=== PATIENT | male | born 1965 | race Two or more races ===

== ENCOUNTER 2016-08-02 13:45 | Emergency (ER) | payer MEDICARE, MEDICAID ==
[~2016-08-02] VITALS: Ht 172.7 cm; Wt 63.5 kg
[~2016-08-02 13:45] MED LIST: ANTIVERT25 MG ORAL; CYMBALTA30 MG ORAL; DILANTIN100 MG ORAL; DSS250 MG ORAL; EFFEXOR XR150 MG ORAL; GABAPENTIN800 MG ORAL; MS CONTIN100 MG ORAL; NEXIUM2.5 MG ORAL; NEXIUM40 MG ORAL; NORCO 5-325 TA1 EACH ORAL; PAMELOR10 MG ORAL; PHENYTOIN SODI100 MG ORAL; RANITIDINE HCL150 MG ORAL; SINGULAIR10 MG ORAL; VENLAFAXINE HCL25 MG ORAL; VICODIN ES 7.51 EAC1 ORAL; ZOFRAN ODT4 MG ORAL
[2016-08-02 14:05] VITALS: BP 132/83
[2016-08-02] MEDS: traMADol 50mg tab ORAL ONE ×2 (14:27→14:29)
--- NOTE | 2016-08-02 14:37 | Emergency Room Report ---
History of Present Illness General Chief Complaint: Upper Extremity Injury Present Illness HPI The patient is a 51-year-old male presenting with right elbow pain which began last night. The patient states that he fell on the bed onto the elbow. Pain is described as a 10 out of 10 dull ache it does not radiate. Pain worse with touch and movement. The patient denies prior injury to this area. Patient denies numbness or tingling. Pt denies any other symptoms including N, V,F, chills, rash Allergies: Coded Allergies: IBUPROFEN (Verified Allergy, Unknown, 09/20/10) Patient History Past Medical History: see triage record Pertinent Family History: none Reviewed Nursing Documentation: PMH: Agreed, PSxH: Agreed Nursing Documentation-PMH Past Medical History: No Stated History Hx Cardiac Problems: No Hx Hypertension: No Hx Pacemaker: No Hx Asthma: No Hx Diabetes: No Hx Cancer: No Hx Gastrointestinal Problems: Yes - Pancreatitis Hx Neurological Problems: Yes - SEIZURES- LAST EPISODE WAS ON 12/2013 Hx Seizures: Yes Review of Systems All Other Systems: negative except mentioned in HPI Physical Exam Vital Signs Date Time Temp Pulse Resp B/P Pulse Ox O2 Delivery O2 Flow Rate FiO2 08/02/16 14:05 98.6 102 20 132/83 97 Room Air Sp02 EP Interpretation: reviewed, normal General Appearance: no apparent distress, alert, GCS 15, non-toxic Head: normocephalic, atraumatic Eyes: bilateral eye PERRL, bilateral eye normal inspection ENT: hearing grossly normal, normal pharynx, no angioedema, normal voice Neck: full range of motion, supple/symm/no masses Musculoskeletal: normal inspection, normal range of motion, tender - TTP over R radial head Neurologic: alert, oriented x3, responsive, motor strength/tone normal, sensory intact, normal gait, speech normal Psychiatric: memory normal, no suicidal/homicidal ideation, anxious Skin: normal color, no rash, warm/dry, well hydrated Lymphatic: no adenopathy Procedures Splinting Splinting #1: Consent: Verbal Location: R elbow Pre-Made Type: INES wrap Pre-Proc Neuro Vasc Exam: normal Post-Proc Neuro Vasc Exam: normal Patient Tolerated: Well Complications: None Splinting #2: Consent: Verbal Location: R arm sling Pre-Made Type: sling Pre-Proc Neuro Vasc Exam: normal Post-Proc Neuro Vasc Exam: normal Patient Tolerated: Well Complications: None Medical Decision Making PA Attestation Dr. Obregon is my supervising physician. Patient management was discussed with my supervising physician Diagnostic Impression: Primary Impression: Elbow contusion ER Course The patient is a 51-year-old male presenting with right elbow pain which began last night. Ddx considered include but not limited to sprain/strain, fracture, contusion, narcotic dependence PE: vitals WNL. Pt appears anxious. R elbow: No edema. No ecchymosis. Full AROM. SILT. No TTP over olecranon. + TTP over radial head only. The patient was offered tramadol for pain and refused and states he wants " at least some Dilaudid". Patient initially declines x-rays and continues to ask for narcotics. CURES was checked and the patient was recently placed on Suboxone. Xray of elbow unremarkable. INES wrap placed over elbow and arm placed in sling. I advised patient that he needs to followup with pain management. The patient is given a prescription for Tylenol and will be discharged home. ER precautions are given Other X-Ray Diagnostic Results Other X-Ray Diagnostic Results : X-Ray Ordered: R elbow Date: Aug 02, 2016 EP Interpretation: Yes Findings: no fractures, no dislocation, no soft tissue swelling Number of Views: 3 PA Scribe Text I am acting as scribe for my supervising physician. My supervising physician's interpretation of the R elbow xrays are there are no fractures, dislocations or soft tissue swelling. Last Vital Signs Date Time Temp Pulse Resp B/P Pulse Ox O2 Delivery O2 Flow Rate FiO2 08/02/16 14:05 98.6 102 20 132/83 97 Room Air Status: improved Disposition: HOME, SELF-CARE Condition: Improved Scripts Acetaminophen* (TYLENOL EXTRA STRENGTH*) 500 Mg Tablet 500 MG ORAL Q8H Y for Prn Headache/Temp > 101, #30 TAB 0 Refills Prov: JO ESTRELLA 08/02/16 Referrals: NOT CHOSEN [facility]/,REFERRING (PCP) JO ESTRELLA Aug 02, 2016 14:37
--- NOTE | 2016-08-02 15:03 | Diagnostic Imaging Report ---
Indication: Pain Findings: 3 views of the right elbow were obtained. No acute fractures, malalignment, erosions or periostitis are identified. Bone mineralization is within normal limits. Soft tissues are unremarkable. Impression: Negative examination of the elbow.
[2016-08-02 15:04] VITALS: BP 128/72
[2016-08-02] MEDS ORDERED: TYLENOL EXTRA500 MG ORAL (15:07)
== END 2016-08-02 15:09 | disposition home or self-care (01) ==
LOC: EMR 14:30
DX: S50.01XA Contusion of right elbow, initial encounter (principal); W06.XXXA Fall from bed, initial encounter; Y92.9 Unspecified place or not applicable; Z88.6 Allergy status to analgesic agent
CPT/HCPCS: 29260; 99283

== ENCOUNTER 2016-08-20 23:51 | Emergency (ER) | payer MEDICARE, MEDICAID ==
[~2016-08-20] VITALS: Ht 172.7 cm; Wt 73.5 kg
[~2016-08-20 23:51] MED LIST changes: +TYLENOL EXTRA500 MG ORAL
[2016-08-21] MEDS ORDERED: GABAPENTIN100 MG ORAL (00:27)
[2016-08-21 00:30] VITALS: BP 130/73
--- NOTE | 2016-08-21 01:23 | Emergency Room Report ---
History of Present Illness General Chief Complaint: Head Injury Source: Patient Present Illness [facility] This is a 31-year-old male presents with chief complaint of head injury. He said that about 24 hours ago he was picking up medicine for his mother. He said that there were boxes in the parking lot and he ducked underneath it. He stood up and hit his head on the boxes. He said he fell to the ground. He went home and slept until 4 PM. He is here now because of headache. No other injury. He drove here without a problem. Denies any other complaint. Allergies: Coded Allergies: IBUPROFEN (Verified Allergy, Unknown, 09/20/10) Patient History Past Medical History: see triage record, old chart reviewed Past Surgical History: other Pertinent Family History: none Social History: Denies: smoking Immunizations: other Reviewed Nursing Documentation: PMH: Agreed, PSxH: Agreed Nursing Documentation-PMH Hx Cardiac Problems: No Hx Hypertension: No Hx Pacemaker: No Hx Asthma: No Hx Diabetes: No Hx Cancer: No Hx Gastrointestinal Problems: Yes - Pancreatitis Hx Neurological Problems: Yes - SEIZURES- LAST EPISODE WAS ON 12/2013 Hx Seizures: Yes Review of Systems Eye: Denies: blurred vision, eye pain ENT: Denies: ear pain, nose congestion, throat swelling Respiratory: Denies: cough, shortness of breath Cardiovascular: Denies: chest pain, palpitations Gastrointestinal: Denies: abdominal pain, diarrhea, nausea, vomiting Musculoskeletal: Denies: back pain, joint pain Skin: Denies: rash Neurological: Denies: headache, numbness Endocrine: Denies: increased thirst, increased urine Hematologic/Lymphatic: Denies: easy bruising All Other Systems: negative except mentioned in HPI Physical Exam Vital Signs Date Time Temp Pulse Resp B/P Pulse Ox O2 Delivery O2 Flow Rate FiO2 08/21/16 00:22 89 18 130/73 96 vitals normal. Sp02 EP Interpretation: reviewed, normal General Appearance: well appearing, no apparent distress, alert Head: normocephalic, other - abrasion to frontal scalp Eyes: bilateral eye EOMI, bilateral eye PERRL ENT: hearing grossly normal, normal pharynx Neck: full range of motion, supple, no meningismus Respiratory: chest non-tender, lungs clear, normal breath sounds Cardiovascular #1: regular rate, rhythm, no murmur Gastrointestinal: normal bowel sounds, non tender, no mass, no organomegaly, no bruit, non-distended Musculoskeletal: back normal, gait/station normal, normal range of motion Neurologic: alert, oriented x3 Psychiatric: mood/affect normal Skin: warm/dry Medical Decision Making Diagnostic Impression: Primary Impression: Acute head injury Qualified Codes: S09.90XA - Unspecified injury of head, initial encounter Additional Impression: History of cocaine abuse ER Course Is presents with head injury. No evidence of intracranial bleed or fracture. He does have a history of opioid dependence and cocaine abuse in the past. I suspect that he may have drugs involved causing his injury. CT/MRI/US Diagnostic Results CT/MRI/US Diagnostic Results : Imaging Test Ordered: ct head Impression neg per radiologist Last Vital Signs Date Time Temp Pulse Resp B/P Pulse Ox O2 Delivery O2 Flow Rate FiO2 08/21/16 00:22 89 18 130/73 96 Status: improved Disposition: HOME, SELF-CARE Condition: Stable Referrals: NOT CHOSEN IPA/,REFERRING (PCP) Patient Instructions: HEAD INJURY, No Wake-Up (Adult) Additional Instructions: Follow up with your doctor in 7 days. Stop using cocaine. Return if worse. BEATRIS MONTILLA M.D. Aug 21, 2016 01:23
[2016-08-21 01:30] VITALS: BP 130/73
--- NOTE | 2016-08-21 10:17 | Diagnostic Imaging Report ---
Indication: TRAUMA Technique: Continuous helical CT scanning of the head was performed without intravenous contrast material. Axial and coronal 5 mm sections were generated. Radiation dose was minimized using automated exposure control Dose: Total Dose Length Product - DLP [address] Dose Index - CTDIvol(s) 70.38 mGy. Comparison: 03/20/2011 Findings: The ventricular system is normal in size and configuration. There is no shift of midline structures. No abnormal extra-axial fluid collections are noted. There is no evidence of intracerebral bleeding. No other abnormal high or low density areas are noted within the brain. Intact calvarium. Visualized orbits and sinuses are unremarkable. No significant interim change Impression: Normal CT scan of the head without contrast material. This agrees with the preliminary interpretation provided overnight by [facility]. The CT scanner at [facility] is accredited by the [employer] and the scans are performed using protocols designed to limit radiation exposure to as low as reasonably achievable to attain images of sufficient resolution adequate for diagnostic evaluation.
== END 2016-08-21 01:30 | disposition home or self-care (01) ==
LOC: EMR 08-21 01:04
DX: S09.90XA Unspecified injury of head, initial encounter (principal); F14.10 Cocaine abuse, uncomplicated; Z88.6 Allergy status to analgesic agent; W22.09XA Striking against other stationary object, initial encounter; Y92.9 Unspecified place or not applicable; Y99.8 Other external cause status
CPT/HCPCS: 70450; 99284

== ENCOUNTER 2017-04-15 02:44 | Emergency (ER) | payer MEDICARE, MEDICAID ==
[~2017-04-15] VITALS: Ht 172.7 cm; Wt 70.3 kg
[~2017-04-15 02:44] MED LIST changes: +GABAPENTIN100 MG ORAL
[2017-04-15] MEDS ORDERED: Morphine Sulfate 4mg/ml Inj IVP ONE (03:15)
[2017-04-15 03:28] VITALS: BP 110/73
[2017-04-15 03:28] LABS: MEAN CORPUSCULAR HEMOGLOBIN 32.7 PG (27.0-31.0); MEAN CORPUSCULAR HGB CONC 33.7 G/DL (32.0-36.0); MEAN CORPUSCULAR VOLUME 97 FL (80-99); MEAN PLATELET VOLUME 6.2 FL (6.5-10.1); PLATELET COUNT 301 K/UL (150-450); RED BLOOD COUNT 4.58 M/UL (4.70-6.10); RED CELL DISTRIBUTION WIDTH 10.9 % (11.6-14.8); WHITE BLOOD COUNT 7.3 K/UL (4.8-10.8)
[2017-04-15 03:59] LABS: ANION GAP 9 mmol/L (5-15); CALCIUM 9.1 MG/DL (8.5-10.1); CARBON DIOXIDE 28 MMOL/L (21-32); CHLORIDE 100 MMOL/L (98-107); CREATININE 1.1 MG/DL (0.55-1.30); GLOMERULAR FILTRATION RATE > 60 mL/min (>60); POTASSIUM 4.2 MMOL/L (3.5-5.1); SODIUM 137 MMOL/L (136-145)
[2017-04-15 04:04] LABS: ALANINE AMINOTRANSFERASE 64 U/L (12-78); ALBUMIN/GLOBULIN RATIO 0.9 (1.0-2.7); ASPARTATE AMINO TRANSFERASE 65 U/L (15-37); LIPASE 219 U/L (73-393); TOTAL PROTEIN 8.7 G/DL (6.4-8.2)
[2017-04-15] MEDS ORDERED: ZOFRAN ODT4 MG ORAL (04:19)
[2017-04-15] MEDS ORDERED: RANITIDINE HCL150 MG ORAL (04:19)
[2017-04-15 04:32] VITALS: BP 103/81
[2017-04-15 04:33] VITALS: BP 110/73
--- NOTE | 2017-04-15 05:00 | Emergency Room Report ---
History of Present Illness General Chief Complaint: Abdominal Pain Source: Patient Present Illness HPI 52-year-old male presents ED complaining of abdominal pain and vomiting. States symptoms started last week but has not resolved. Patient has history of pancreatitis. Discussed pain is epigastric, 10 out of 10, sharp, nonradiating. Multiple episodes of vomiting. States he vomited blood last week there's been no blood since. Denies chest pain or shortness of breath. Denies fevers or chills. No other aggravating relieving factors. Denies any other associated symptoms Allergies: Coded Allergies: IBUPROFEN (Verified Allergy, Unknown, 09/20/10) Patient History Past Medical History: seizures, other - pancreatitis Immunizations: UTD Reviewed Nursing Documentation: PMH: Agreed, PSxH: Agreed Nursing Documentation-PMH Hx Cardiac Problems: No Hx Hypertension: No Hx Pacemaker: No Hx Asthma: No Hx Diabetes: No Hx Cancer: No Hx Gastrointestinal Problems: Yes - Pancreatitis Hx Neurological Problems: Yes - SEIZURES- LAST EPISODE WAS ON 12/2013 Hx Seizures: Yes Review of Systems All Other Systems: negative except mentioned in HPI Physical Exam Vital Signs Date Time Temp Pulse Resp B/P (MAP) Pulse Ox O2 Delivery O2 Flow Rate FiO2 04/15/17 02:48 97.9 85 18 110/71 98 Room Air Sp02 EP Interpretation: reviewed, normal General Appearance: alert, GCS 15, non-toxic, mild distress Head: normocephalic, atraumatic Eyes: bilateral eye normal inspection, bilateral eye PERRL ENT: hearing grossly normal, normal pharynx, no angioedema, normal voice Neck: full range of motion, supple/symm/no masses Respiratory: chest non-tender, lungs clear, normal breath sounds, speaking full sentences Cardiovascular #1: regular rate, rhythm, no edema Cardiovascular #2: 2+ carotid (R), 2+ carotid (L), 2+ radial (R), 2+ radial (L) , 2+ dorsalis pedis (R), 2+ dorsalis pedis (L) Gastrointestinal: normal bowel sounds, soft, non-distended, no guarding, no rebound, tenderness - epigastric Rectal: deferred Genitourinary: normal inspection, no CVA tenderness Musculoskeletal: back normal, gait/station normal, normal range of motion, non- tender Neurologic: alert, oriented x3, responsive, motor strength/tone normal, sensory intact, speech normal Psychiatric: judgement/insight normal, memory normal, mood/affect normal, no suicidal/homicidal ideation Reflexes: 3+ bicep (R), 3+ bicep (L), 3+ tricep (R), 3+ tricep (L), 3+ knee (R) , 3+ knee (L) Skin: normal color, no rash, warm/dry, well hydrated Lymphatic: no adenopathy Medical Decision Making Diagnostic Impression: Primary Impression: Gastritis Qualified Codes: K29.00 - Acute gastritis without bleeding Additional Impression: Opioid dependence Qualified Codes: F11.29 - Opioid dependence with unspecified opioid-induced disorder ER Course Hospital Course 52-year-old M presents to ED with epigastric pain with N/V. differential diagnosis: gastritis, SBO, cholecystits Clinical course Patient placed on stretcher. 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 After initial history and physical I ordered labs, IV fluids, Zofran and Zantac and pain meds Labs - no leukocytosis, no electrolyte abnormalities, LFTs normal Upon reassessment, patient states pain has improved. findings consistent with gastritis I reviewed EMR; patient has been here multiple times for similar presentation. There has been previous history of drug abuse. I reviewed CURES and patient receives extensive monthly narcotic prescriptions I feel this is a highly complex case requiring extensive working including EKG/ Rhythm strip, Xray/CT/US, Blood/urine lab work, repeat exams while in ED, and administration of strong opiates/narcotics for pain control, admission to hospital or close patient follow up. Diagnosis - gastritis, opioid dependence Stable and discharged to home with prescriptions for Zantac, zofran. Followup with PMD. Return to ED if symptoms recur or worsen Labs Test 04/15/17 03:20 White Blood Count 7.3 K/UL (4.8-10.8) Red Blood Count 4.58 M/UL (4.70-6.10) Hemoglobin 15.0 G/DL (14.2-18.0) Hematocrit 44.5 % (42.0-52.0) Mean Corpuscular Volume 97 FL (80-99) Mean Corpuscular Hemoglobin 32.7 PG (27.0-31.0) Mean Corpuscular Hemoglobin Concent 33.7 G/DL (32.0-36.0) Red Cell Distribution Width 10.9 % (11.6-14.8) Platelet Count 301 K/UL (150-450) Mean Platelet Volume 6.2 FL (6.5-10.1) Neutrophils (%) (Auto) % (45.0-75.0) Lymphocytes (%) (Auto) % (20.0-45.0) Monocytes (%) (Auto) % (1.0-10.0) Eosinophils (%) (Auto) % (0.0-3.0) Basophils (%) (Auto) % (0.0-2.0) Sodium Level 137 MMOL/L (136-145) Potassium Level 4.2 MMOL/L (3.5-5.1) Chloride Level 100 MMOL/L (98-107) Carbon Dioxide Level 28 MMOL/L (21-32) Anion Gap 9 mmol/L (5-15) Blood Urea Nitrogen 17 mg/dL (7-18) Creatinine 1.1 MG/DL (0.55-1.30) Estimat Glomerular Filtration Rate > 60 mL/min (>60) Glucose Level 98 MG/DL (74-106) Calcium Level 9.1 MG/DL (8.5-10.1) Total Bilirubin 0.5 MG/DL (0.2-1.0) Aspartate Amino Transf (AST/SGOT) 65 U/L (15-37) Alanine Aminotransferase (ALT/SGPT) 64 U/L (12-78) Alkaline Phosphatase 91 U/L (46-116) Total Protein 8.7 G/DL (6.4-8.2) Albumin 4.0 G/DL (3.4-5.0) Globulin 4.7 g/dL Albumin/Globulin Ratio 0.9 (1.0-2.7) Lipase 219 U/L (73-393) Last Vital Signs Date Time Temp Pulse Resp B/P (MAP) Pulse Ox O2 Delivery O2 Flow Rate FiO2 04/15/17 04:39 97.8 04/15/17 04:33 70 18 110/73 98 Room Air Status: improved Disposition: HOME, SELF-CARE Condition: Stable Scripts Ondansetron Odt* (ZOFRAN ODT*) 4 Mg Tab.rapdis 4 MG ORAL Q6H Y for Nausea & Vomiting, #30 TAB 0 Refills Prov: DANYA WILKS M.D. 04/15/17 Ranitidine Hcl* (ZANTAC*) 150 Mg Tablet 150 MG ORAL TWICE A DAY, #30 TAB Prov: DANYA WILKS M.D. 04/15/17 Referrals: JOHNNA AVILA (PCP) Patient Instructions: Gastritis, Adult DANYA WILKS M.D. Apr 15, 2017 05:00
== END 2017-04-15 04:33 | disposition home or self-care (01) ==
LOC: EMR 03:04
DX: K29.00 Acute gastritis without bleeding (principal); F11.29 Opioid dependence with unspecified opioid-induced disorder; Z88.6 Allergy status to analgesic agent
CPT/HCPCS: 36415; 80053; 83690; 85025; 96361; 96374; 96375; 99284; J2270; J2405; S0028

== ENCOUNTER 2017-05-30 22:03 | Emergency (ER) | payer MEDICARE, MEDICAID ==
[~2017-05-30] VITALS: Ht 172.7 cm; Wt 70.8 kg
--- NOTE | 2017-05-30 22:44 | Emergency Room Report ---
History of Present Illness General Chief Complaint: Upper Extremity Injury Source: Patient Present Illness HPI 52-year-old male, no significant past medical history, presenting with right hand pain. Patient states that he was moving heavy household items with a shopping cart, a heavy household items box fell onto his hand. Now complaining of right hand pain. No other complaints Allergies: Coded Allergies: IBUPROFEN (Verified Allergy, Unknown, 05/30/17) Patient History Past Medical History: see triage record Past Surgical History: none Pertinent Family History: none Reviewed Nursing Documentation: PMH: Agreed, PSxH: Agreed Nursing Documentation-PMH Hx Cardiac Problems: No Hx Hypertension: No Hx Pacemaker: No Hx Asthma: No Hx Diabetes: No Hx Cancer: No Hx Gastrointestinal Problems: Yes - Pancreatitis Hx Neurological Problems: Yes - SEIZURES- LAST EPISODE WAS ON 12/2013 Hx Seizures: Yes Review of Systems All Other Systems: negative except mentioned in HPI Physical Exam Vital Signs Date Time Temp Pulse Resp B/P (MAP) Pulse Ox O2 Delivery O2 Flow Rate FiO2 05/30/17 22:15 98.2 84 16 104/74 98 Room Air Sp02 EP Interpretation: reviewed, normal General Appearance: normal inspection, well appearing, no apparent distress, alert, GCS 15, non-toxic Head: normocephalic, atraumatic Eyes: bilateral eye normal inspection, bilateral eye PERRL, bilateral eye EOMI ENT: normal ENT inspection, normal pharynx, normal voice, moist mucus membranes Neck: normal inspection, full range of motion, supple Respiratory: normal inspection, lungs clear, normal breath sounds, no respiratory distress, no retraction, no wheezing, speaking full sentences, chest symmetrical Cardiovascular #1: normal inspection, regular rate, rhythm, no edema, normal capillary refill Cardiovascular #2: 2+ radial (R), 2+ radial (L) Gastrointestinal: normal inspection, non tender, soft, non-distended, no guarding Genitourinary: no CVA tenderness Musculoskeletal: other - R hand with edema/erythema dorsum 4th/5th metacarpal region, has full range of motion however w/ pain. no gross bony deformities. Neurologic: normal inspection, alert, oriented x3, responsive, motor strength/ tone normal, sensory intact, normal gait, speech normal Psychiatric: normal inspection, judgement/insight normal, memory normal Skin: normal inspection, normal color, no rash, warm/dry, well hydrated, normal turgor Medical Decision Making Diagnostic Impression: Primary Impression: Contusion of hand, right ER Course 52-year-old male with right hand pain DDX: Contusion vs. fracture Plan: Pain control with Tylenol XR ER course: Patient reports improvement of pain XR reveals soft tissue swelling without fracture Vadim wrap applied Disposition: Patient is to be discharged home Patient educated to rest, ice, and elevate extremity and to avoid vigorous activity. Strict precautions discussed with patient on when to return to the emergency room including increased redness or swelling joints, increased pain/swelling of extremity, fever or chills, which could indicate severe illness. Patient is to follow up with their primary care doctor within 5 days. Patient also instructed to follow up with an orthopedic doctor if continuing to have mild/moderate pain as he may need further outpatient imaging. Patient agrees with plan. Please note that this Emergency Department Report was dictated using [employer] or probation officer technology software, occasionally this can lead to erroneous entry secondary to interpretation by the dictation equipment. Xray ordered: Right hand 3 view Indication: Pain EP Interpretation: Yes Interpretation: No dislocation, no soft tissue swelling, no fractures Impression: No acute disease Electronically signed by Juan Ly MD Xray: Right wrist Complete Indication: Pain EP Interpretation: Yes Interpretation: No dislocation, no soft tissue swelling, no fractures Impression: No acute disease Electronically signed by Juan Ly MD Last Vital Signs Date Time Temp Pulse Resp B/P (MAP) Pulse Ox O2 Delivery O2 Flow Rate FiO2 05/30/17 22:15 98.2 84 16 104/74 98 Room Air Disposition: HOME, SELF-CARE Condition: Improved Patient Instructions: CONTUSION, Upper Extremity Juan Ly M.D. May 30, 2017 22:44
[2017-05-30] MEDS ORDERED: Acetaminophen 500mg (ES) tab ORAL ONE (22:45)
[2017-05-30 23:10] VITALS: BP 104/74
[2017-05-30 23:13] VITALS: BP 104/74
--- NOTE | 2017-05-31 11:16 | Diagnostic Imaging Report ---
Indication: pain Findings: 3 views of the right hand were obtained. Normal bony mineralization and alignment are demonstrated. No acute fractures, erosions, or periosteal reaction are seen. Soft tissues are unremarkable. Impression: No acute findings.
--- NOTE | 2017-05-31 11:16 | Diagnostic Imaging Report ---
Indication: Pain Findings: 3 views of the right wrist were obtained. No acute fractures, malalignment, erosions or periostitis are identified. Soft tissues are unremarkable. Impression: No acute findings.
== END 2017-05-30 23:13 | disposition home or self-care (01) ==
LOC: EMR 22:45
DX: S60.221A Contusion of right hand, initial encounter (principal); X50.0XXA Overexertion from strenuous movement or load, initial encounter; Y92.89 Other specified places as the place of occurrence of the external cause
CPT/HCPCS: 99284

== ENCOUNTER 2017-12-20 00:16 | Emergency (ER) | payer MEDICARE, MEDICAID ==
[~2017-12-20] VITALS: Ht 172.7 cm; Wt 72.6 kg
[2017-12-20] MEDS ORDERED: Promethazine 50mg/ml Inj IM ONE (00:30)
--- NOTE | 2017-12-20 00:41 | Emergency Room Report ---
History of Present Illness General Chief Complaint: Headache Source: Patient Present Illness HPI Is a 52-year-old male with history opioid dependence. He is on Suboxone. Also has history of headache. He presents with left-sided headache for the last 2 days. He said [id number] Tylenol not helping. Usually goes to the hospital get pain medication. Denies any fever chills. Gradual onset. Similar to previous headache. No nausea no vomiting. No fever or chills. Pain is 7 out of 10. Nothing made it better. Nothing made it worse. Allergies: Coded Allergies: IBUPROFEN (Verified Allergy, Unknown, 05/30/17) Patient History Past Medical History: see triage record, old chart reviewed Past Surgical History: other Pertinent Family History: none Social History: Reports: smoking Immunizations: other Reviewed Nursing Documentation: PMH: Agreed; PSxH: Agreed Nursing Documentation-PMH Hx Cardiac Problems: No - MIGRAINE Hx Hypertension: No Hx Pacemaker: No Hx Asthma: No Hx Diabetes: No Hx Cancer: No Hx Gastrointestinal Problems: Yes - Pancreatitis Hx Neurological Problems: Yes - SEIZURES- LAST EPISODE WAS ON 12/2013 Hx Seizures: Yes Review of Systems Eye: Denies: eye pain, blurred vision ENT: Denies: ear pain, nose congestion, throat swelling Respiratory: Denies: cough, shortness of breath Cardiovascular: Denies: chest pain, palpitations Gastrointestinal: Denies: abdominal pain, diarrhea, nausea, vomiting Musculoskeletal: Denies: back pain, joint pain Skin: Denies: rash Neurological: Reports: headache; Denies: numbness Endocrine: Denies: increased thirst, increased urine Hematologic/Lymphatic: Denies: easy bruising All Other Systems: negative except mentioned in HPI Physical Exam Vital Signs Date Time Temp Pulse Resp B/P (MAP) Pulse Ox O2 Delivery O2 Flow Rate FiO2 12/20/17 00:19 97.7 80 16 121/84 99 97.7 vitals normal Sp02 EP Interpretation: reviewed, normal General Appearance: well appearing, no apparent distress, alert Head: normocephalic, atraumatic Eyes: bilateral eye PERRL, bilateral eye EOMI ENT: hearing grossly normal, normal pharynx Neck: full range of motion, supple, no meningismus Respiratory: chest non-tender, lungs clear, normal breath sounds Cardiovascular #1: regular rate, rhythm, no murmur Gastrointestinal: normal bowel sounds, non tender, no mass, no organomegaly, no bruit, non-distended Musculoskeletal: back normal, gait/station normal, normal range of motion Psychiatric: mood/affect normal Skin: warm/dry Medical Decision Making Diagnostic Impression: Primary Impression: Headache Qualified Codes: R51 - Headache Additional Impressions: Opioid dependence Qualified Codes: F11.20 - Opioid dependence, uncomplicated Cocaine abuse ER Course Patient presents with chief complaint of headache. No evidence of any meningitis, sepsis, bleed or TIA or CVA. No evidence of neoplastic process. He 's been here numerous times for different pain complaint. He has a history of cocaine abuse. He felt to mention that he was on Suboxone until I brought it up. Because of his history of cocaine abuse and currently on Suboxone, I am uncomfortable prescribing any narcotics. Patient keep asking for pain medication. Ice and a drug screen because he had a history of cocaine abuse. Initially he denied it but then admit that he was using cocaine. After getting Phenergan he was mad that he was not getting narcotics so we got up and left. Patient left without his paperwork. Last Vital Signs Date Time Temp Pulse Resp B/P (MAP) Pulse Ox O2 Delivery O2 Flow Rate FiO2 12/20/17 00:19 97.7 80 16 121/84 99 97.7 Status: unchanged Disposition: HOME, SELF-CARE BEATRIS MONTILLA M.D. Dec 20, 2017 00:41
[2017-12-20 00:59] VITALS: BP 121/84
== END 2017-12-20 01:00 | disposition home or self-care (01) ==
LOC: EMR 00:30
DX: G43.909 Migraine, unspecified, not intractable, without status migrainosus (principal); F11.20 Opioid dependence, uncomplicated; F14.10 Cocaine abuse, uncomplicated; Z88.6 Allergy status to analgesic agent; R56.9 Unspecified convulsions; F17.200 Nicotine dependence, unspecified, uncomplicated
CPT/HCPCS: 80307; 99283; J2550